=== PATIENT | female | born 1980 | race African-American/Black ===

== ENCOUNTER 2021-08-03 15:27 | Emergency (ER) | payer OTHER ==
[~2021-08-03] VITALS: Ht 167.6 cm; Wt 100.0 kg
[2021-08-03 15:29] VITALS: BP 143/85
[2021-08-03] MEDS ORDERED: PERM60CR4 TP ×2 (16:31)
[2021-08-07] MEDS ORDERED: PERM60CR4 TP ×3 (14:01→14:02)
== END 2021-08-03 16:48 | disposition home or self-care (01) ==
LOC: ER 16:35
DX: B86 Scabies (principal); Z98.890 Other specified postprocedural states
CPT/HCPCS: 99282

== ENCOUNTER 2021-08-11 15:45 | Emergency (ER) | payer MEDICAID, OTHER ==
[~2021-08-11] VITALS: Ht 165.1 cm; Wt 101.0 kg
[~2021-08-11 15:45] MED LIST: PERM60CR4 TP
[2021-08-11] MEDS ORDERED: IVER117L TP (16:38)
[2021-08-11 16:44] VITALS: BP 141/65
== END 2021-08-11 16:44 | disposition home or self-care (01) ==
LOC: ER 15:45
DX: R21 Rash and other nonspecific skin eruption (principal); M32.9 Systemic lupus erythematosus, unspecified; Z98.890 Other specified postprocedural states
CPT/HCPCS: 99283

== ENCOUNTER 2022-12-08 19:46 | Emergency (ER) | payer OTHER ==
[~2022-12-08] VITALS: Ht 170.2 cm; Wt 118.2 kg
[~2022-12-08 19:46] MED LIST changes: +APIX5TAB MT; +APIX5TAB PO; +FERR-63 PO; +HYDR-4001 PO; +METH-773 PO; +NICO-786 TD; +OXYC-662 MT; +PANT40TA51 PO; -PERM60CR4 TP; +POTA-202 PO; +RISP05 NG; +RISP1 PO; +SPIR25TA PO; +TOPUD MT; +TRAZ-251 PO
[2022-12-08 20:15] VITALS: O2SAT 99
[2022-12-08] MEDS: ASPIRIN 325MG EC TABLET PO NR ×2 (20:15→22:28)
[2022-12-08] MEDS ORDERED: ASPIRIN 325MG EC TABLET PO ONE (20:30)
[2022-12-08 21:03] LABS: BASOPHILS % 0.4 % (0.0-2.0); EOSINOPHILS % 3.3 % (0.0-5.0); HEMATOCRIT. 32.4 % (36.0-48.0); HEMOGLOBIN. 10.5 g/dL (12.0-16.0); LYMPHOCYTES % 37.6 % (20.0-50.0); MEAN CORPUSCULAR HEMOGLOBIN 24.2 pg (28.0-32.0); MEAN CORPUSCULAR HGB CONC 32.5 g/dL (31.0-37.0); MEAN CORPUSCULAR VOLUME 74.5 fL (81.0-99.0); MEAN PLATELET VOLUME 7.1 fl (7.4-10.4); MONOCYTES % 6.9 % (2.0-8.0); NEUTROPHILS % 51.8 % (40.0-76.0); PLATELET 365 x1000/uL (130-400); RED BLOOD CELL COUNT 4.35 mill/uL (4.2-5.4); RED CELL DISTRIBUTION WIDTH 30.3 % (11.6-14.6); WHITE BLOOD COUNT 6.8 x1000/uL (4.5-11.0)
[2022-12-08 21:04] LABS: DIFFERENTIAL COMMENT 1
[2022-12-08 21:05] LABS: ADD RBC MORPHOLOGY YES
[2022-12-08 21:12] LABS: CHLORIDE 107 mEq/L (98-107); INDEX HEMOLYSI 1 (1-3); INDEX ICTERIC 1 (1-4); INDEX LIPEMIC 1 (1-3); POTASSIUM 3.1 mEq/L (3.5-5.1); SODIUM 136 mEq/L (136-145)
[2022-12-08 21:19] LABS: HCG SCREEN NEGATIVE
[2022-12-08 21:21] LABS: ALANINE AMINOTRANSFERASE 14 IU/L (13-61); ALBUMIN 2.9 g/dL (3.4-5.0); ASPARTATE AMINOTRANSFERASE 12 IU/L (15-37); BILIRUBIN TOTAL 0.2 mg/dL (0.1-1.0); CALCIUM 8.4 mg/dL (8.5-10.1); CARBON DIOXIDE 28 mEq/L (21-32); CREATININE 0.6 mg/dL (0.6-1.3); GLUCOSE 96 mg/dL (70-105); PROTEIN TOTAL 8.1 g/dL (6.0-8.3); TROPONIN I HIGH SENSITIVITY 4 ng/L (<54); UREA NITROGEN BLOOD 8 mg/dL (7-21)
[2022-12-08 21:51] LABS: PLATELET ESTIMATE NORMAL
[2022-12-08 21:52] LABS: ANISOCYTOSIS 3+; HYPOCHROMASIA 1+; MICROCYTOSIS 2+; OVALOCYTES 1+
[2022-12-08 21:53] LABS: GIANT PLATELETS FEW
[2022-12-08] MEDS ORDERED: LORA10CA MT (22:17)
[2022-12-08] MEDS ORDERED: ALBU6.7H3 INH (22:17)
[2022-12-08] MEDS ORDERED: GUAI600T26 MT (22:17)
[2022-12-08] MEDS ORDERED: NEBU-248 MC (22:17)
[2022-12-08] MEDS ORDERED: ALBU05 NEB (22:17)
[2022-12-08 22:25] VITALS: BP 152/99; PULSE 84; RESP 16; TEMP 98.2
== END 2022-12-08 22:43 | disposition home or self-care (01) ==
LOC: ER 19:46
DX: R07.89 Other chest pain (principal); Z79.899 Other long term (current) drug therapy; Z76.0 Encounter for issue of repeat prescription; Z13.9 Encounter for screening, unspecified
CPT/HCPCS: 36415; 71045; 80053; 83880; 84484; 84703; 85025; 93005; 93971; 99285

== ENCOUNTER 2023-02-12 22:36 | Emergency (ER) | payer OTHER ==
[~2023-02-12] VITALS: Ht 170.2 cm; Wt 114.0 kg
[~2023-02-12 22:36] MED LIST changes: +ALBU05 NEB; +ALBU6.7H3 INH; +GUAI600T26 MT; +HYDR-4001 MT; +IBUP-2029 MT; +LORA10CA MT; +NEBU-248 MC; +P50 MT
[2023-02-12 22:43] VITALS: O2SAT 100
[2023-02-12 23:32] LABS: BASOPHILS % 0.4 % (0.0-2.0); DIFFERENTIAL COMMENT 0; HEMATOCRIT. 42.4 % (36.0-48.0); HEMOGLOBIN. 13.7 g/dL (12.0-16.0); LYMPHOCYTES % 18.9 % (20.0-50.0); MEAN CORPUSCULAR HEMOGLOBIN 25.8 pg (28.0-32.0); MEAN CORPUSCULAR HGB CONC 32.4 g/dL (31.0-37.0); MEAN CORPUSCULAR VOLUME 79.5 fL (81.0-99.0); MEAN PLATELET VOLUME 7.5 fl (7.4-10.4); MONOCYTES % 2.5 % (2.0-8.0); NEUTROPHILS % 78.2 % (40.0-76.0); PLATELET 381 x1000/uL (130-400); RED BLOOD CELL COUNT 5.33 mill/uL (4.2-5.4); RED CELL DISTRIBUTION WIDTH 15.7 % (11.6-14.6); WHITE BLOOD COUNT 3.8 x1000/uL (4.5-11.0)
[2023-02-12 23:41] LABS: CHLORIDE 105 mEq/L (98-107); INDEX HEMOLYSI 1 (1-3); INDEX ICTERIC 1 (1-4); INDEX LIPEMIC 1 (1-3); POTASSIUM 3.7 mEq/L (3.5-5.1); SODIUM 136 mEq/L (136-145)
[2023-02-12 23:49] LABS: ALANINE AMINOTRANSFERASE 15 IU/L (13-61); ALBUMIN 3.5 g/dL (3.4-5.0); ASPARTATE AMINOTRANSFERASE 13 IU/L (15-37); BILIRUBIN TOTAL 0.2 mg/dL (0.1-1.0); CALCIUM 8.9 mg/dL (8.5-10.1); CARBON DIOXIDE 26 mEq/L (21-32); CREATININE 0.6 mg/dL (0.6-1.3); GLUCOSE 126 mg/dL (70-105); NT PRO B-TYPE NATRIURETIC PEP 62 pg/mL (5-125); TROPONIN I HIGH SENSITIVITY 4 ng/L (<54); UREA NITROGEN BLOOD 8 mg/dL (7-21)
[2023-02-13] MEDS ORDERED: ASPIRIN 81MG TABLET PO ONE (00:30)
[2023-02-13 03:43] VITALS: BP 147/90; PULSE 89; RESP 20; TEMP 98.5
== END 2023-02-13 04:05 | disposition short-term general hospital (02) ==
LOC: ER 22:40
DX: R07.89 Other chest pain (principal); I20.0 Unstable angina; Z86.711 Personal history of pulmonary embolism; Z79.899 Other long term (current) drug therapy
CPT/HCPCS: 80053; 83880; 85025; 85379; 84484; 36415; 71045; 93005; 99285; Z7610

== ENCOUNTER 2023-02-27 06:44 | Emergency (ER) | payer MEDICAID, OTHER ==
[~2023-02-27 06:44] MED LIST changes: -APIX5TAB PO; -HYDR-4001 MT
[2023-02-27 07:00] VITALS: PULSE 88
== END 2023-02-27 08:58 | disposition left against medical advice (07) ==
LOC: ER 06:44
DX: Z53.21 Procedure and treatment not carried out due to patient leaving prior to being seen by health care provider (principal)

== ENCOUNTER 2023-02-27 09:03 | Emergency (ER) | payer MEDICAID, OTHER ==
[~2023-02-27] VITALS: Ht 172.7 cm; Wt 105.0 kg
[2023-02-27 09:27] VITALS: BP 142/110; TEMP 98.2
[2023-02-27 12:07] LABS: BASOPHILS % 1.1 % (0.0-2.0); EOSINOPHILS % 0.7 % (0.0-5.0); HEMATOCRIT. 35.4 % (36.0-48.0); HEMOGLOBIN. 11.5 g/dL (12.0-16.0); MEAN CORPUSCULAR HEMOGLOBIN 26.2 pg (28.0-32.0); MEAN CORPUSCULAR HGB CONC 32.5 g/dL (31.0-37.0); MEAN CORPUSCULAR VOLUME 80.6 fL (81.0-99.0); MEAN PLATELET VOLUME 7.1 fl (7.4-10.4); MONOCYTES % 5.6 % (2.0-8.0); NEUTROPHILS % 69.6 % (40.0-76.0); PLATELET 552 x1000/uL (130-400); RED BLOOD CELL COUNT 4.39 mill/uL (4.2-5.4); RED CELL DISTRIBUTION WIDTH 16.4 % (11.6-14.6); WHITE BLOOD COUNT 12.1 x1000/uL (4.5-11.0)
[2023-02-27 12:18] LABS: D-DIMER 0.29 mg/L FEU (<0.50); PROTHROMBIN TIME 10.6 sec (9.6-11.0)
[2023-02-27 14:18] VITALS: PULSE 85; RESP 16
[2023-02-27 15:40] LABS: ALANINE AMINOTRANSFERASE 17 IU/L (10-49); ASPARTATE AMINOTRANSFERASE 20 IU/L (<34); BILIRUBIN TOTAL 0.5 mg/dL (0.1-1.0); CALCIUM 9.4 mg/dL (8.7-10.4); CARBON DIOXIDE 23 mEq/L (21-32); CHLORIDE 104 mEq/L (98-107); CREATININE 0.7 mg/dL (0.6-1.0); GLUCOSE 101 mg/dL (70-105); POTASSIUM 3.8 mEq/L (3.5-5.1); PROTEIN TOTAL 7.2 g/dL (6.0-8.3); SODIUM 137 mEq/L (136-145); UREA NITROGEN BLOOD 17 mg/dL (9-23)
[2023-02-27 15:42] LABS: TROPONIN I HIGH SENSITIVITY < 4 ng/L (3.0-34)
== END 2023-02-27 15:51 | disposition left against medical advice (07) ==
LOC: ER 09:03 → CANBEDREQ 12:00 → ER 15:51
DX: R06.02 Shortness of breath (principal); Z86.59 Personal history of other mental and behavioral disorders
CPT/HCPCS: 36415; 71045; 80053; 83880; 84484; 85025; 85379; 93005; 99285

== ENCOUNTER 2023-02-27 19:37 | Emergency (ER) | payer OTHER ==
[~2023-02-27] VITALS: Ht 177.8 cm; Wt 100.0 kg
[2023-02-27 19:46] VITALS: BP 136/99; PULSE 104; RESP 20; TEMP 97.7; O2SAT 100
[2023-02-27 23:15] LABS: BASOPHILS % 0.7 % (0.0-2.0); HEMATOCRIT. 33.1 % (36.0-48.0); HEMOGLOBIN. 11.1 g/dL (12.0-16.0); LYMPHOCYTES % 31.7 % (20.0-50.0); MEAN CORPUSCULAR HGB CONC 33.5 g/dL (31.0-37.0); MEAN CORPUSCULAR VOLUME 80.7 fL (81.0-99.0); MONOCYTES % 7.3 % (2.0-8.0); NEUTROPHILS % 58.3 % (40.0-76.0); PLATELET 500 x1000/uL (130-400); WHITE BLOOD COUNT 9.2 x1000/uL (4.5-11.0)
[2023-02-27 23:26] LABS: PARTIAL THROMBOPLASTIN TIME 27.5 sec (23.4-31.0); PROTHROMBIN TIME 10.3 sec (9.6-11.0)
[2023-02-27 23:31] LABS: ALANINE AMINOTRANSFERASE 15 IU/L (10-49); ALBUMIN 3.8 g/dL (3.2-4.8); ASPARTATE AMINOTRANSFERASE 19 IU/L (<34); BILIRUBIN TOTAL 0.2 mg/dL (0.1-1.0); CALCIUM 8.9 mg/dL (8.7-10.4); CARBON DIOXIDE 26 mEq/L (21-32); CHLORIDE 104 mEq/L (98-107); CREATININE 0.6 mg/dL (0.6-1.0); GLUCOSE 132 mg/dL (70-105); POTASSIUM 3.4 mEq/L (3.5-5.1); PROTEIN TOTAL 6.8 g/dL (6.0-8.3); SODIUM 139 mEq/L (136-145); UREA NITROGEN BLOOD 16 mg/dL (9-23)
[2023-02-27 23:59] LABS: TROPONIN I HIGH SENSITIVITY < 4 ng/L (3.0-34)
== END 2023-02-28 05:30 | disposition home or self-care (01) ==
LOC: ER 19:37
DX: R06.02 Shortness of breath (principal); Z79.899 Other long term (current) drug therapy; Z98.890 Other specified postprocedural states
CPT/HCPCS: 36415; 71045; 80053; 84484; 85025; 93005; 99285

== ENCOUNTER 2023-10-12 20:46 | Emergency (ER) | payer OTHER ==
[~2023-10-12] VITALS: Ht 165.1 cm; Wt 114.0 kg
[~2023-10-12 20:46] MED LIST changes: +AMLO5TAB88 MT; +APIX5TAB PO; +BENZ100C86 MT; +ONDA4TAB50 MT
[2023-10-12 20:53] VITALS: BP 145/99; PULSE 116; RESP 16; O2SAT 99
[2023-10-12 21:43] LABS: HEMATOCRIT. 27.4 % (36.0-48.0); HEMOGLOBIN. 8.2 g/dL (12.0-16.0); MEAN CORPUSCULAR HEMOGLOBIN 18.4 pg (28.0-32.0); MEAN CORPUSCULAR HGB CONC 30.1 g/dL (31.0-37.0); MEAN PLATELET VOLUME 7.2 fl (7.4-10.4); PLATELET 413 x1000/uL (130-400); RED BLOOD CELL COUNT 4.49 mill/uL (4.2-5.4)
[2023-10-12 21:44] LABS: DIFFERENTIAL COMMENT 1
[2023-10-12 21:49] LABS: CHLORIDE 109 mEq/L (98-107); POTASSIUM 3.8 mEq/L (3.5-5.1); SODIUM 138 mEq/L (136-145)
[2023-10-12 21:50] LABS: CALCIUM 8.7 mg/dL (8.7-10.4); CARBON DIOXIDE 24 mEq/L (21-32)
[2023-10-12 21:52] LABS: HCG SCREEN NEGATIVE
[2023-10-12 21:55] LABS: CREATININE 0.6 mg/dL (0.6-1.0); GLUCOSE 96 mg/dL (70-105); UREA NITROGEN BLOOD 13 mg/dL (9-23)
[2023-10-12 21:58] LABS: ETHANOL BLOOD < 10 mg/dL (<10); PLATELET ESTIMATE INCREASED; TROPONIN I HIGH SENSITIVITY < 4 ng/L (3.0-34)
[2023-10-12 21:59] LABS: ANISOCYTOSIS 2+; HYPOCHROMASIA 3+; MICROCYTOSIS 3+
[2023-10-13] MEDS ORDERED: ACET-2708 MT (01:23)
[2023-10-13 01:55] VITALS: TEMP 98
[2023-10-13] MEDS: ACETAMINOPHEN 500MG TABLET PO ONE (01:55)
[2023-10-13] MEDS ORDERED: IOHEXOL-350 100 ML BOTTLE ONE (03:11)
== END 2023-10-13 10:06 | disposition left against medical advice (07) ==
LOC: ER 20:46
DX: M79.18 Myalgia, other site (principal); R53.1 Weakness; R42 Dizziness and giddiness; Z98.890 Other specified postprocedural states; Z79.899 Other long term (current) drug therapy
CPT/HCPCS: 80048; 80320; 84703; 85025; 85379; 84484; 36415; 71045; 71275; 93005; 99285; Z7610; Q9967; G0480

== ENCOUNTER 2023-12-26 20:07 | Inpatient (IN) | payer BC, MEDICAID, OTHER ==
[~2023-12-26] VITALS: Ht 170.2 cm; Wt 111.3 kg
[~2023-12-26 20:07] MED LIST changes: +ACET-2708 MT
[2023-12-26] MEDS ORDERED: MORPHINE SULFATE 4 MG/ML INJ (FOR IV/IM USE) IV STA (21:41)
[2023-12-26] MEDS: ASPIRIN 81MG TABLET PO ONE (22:14)
[2023-12-26] MEDS: NITROGLYCERIN 0.4MG TABLET SL SL PRN (22:26)
[2023-12-26] MEDS ORDERED: LORAZEPAM 2MG/ML INJ IM ONE (23:45)
[2023-12-27 01:00] LABS: *AMPHETAMINES SCREEN URINE PRESUMPTIVE POSITIVE (NEGATIVE); *BARBITURATES SCREEN URINE NEGATIVE (NEGATIVE); *BENZODIAZEPINES SCREEN URINE NEGATIVE (NEGATIVE); *COCAINE SCREEN URINE NEGATIVE (NEGATIVE); METHADONE URINE SCREEN NEGATIVE (NEGATIVE); OPIATES URINE SCREEN NEGATIVE (NEGATIVE)
[2023-12-27 01:01] LABS: CANNABINOID URINE SCREEN NEGATIVE (NEGATIVE); ECSTASY MDMA SCREEN URINE CONF.TEST INDICATED (NEGATIVE); PHENCYCLIDINE URINE SCREEN NEGATIVE (NEGATIVE)
[2023-12-27] MEDS: LORAZEPAM 2MG/ML INJ IM NR (01:10)
[2023-12-27 02:09] LABS: HEMATOCRIT. 27.8 % (36.0-48.0); HEMOGLOBIN. 8.4 g/dL (12.0-16.0); MEAN CORPUSCULAR HEMOGLOBIN 18.5 pg (28.0-32.0); MEAN CORPUSCULAR VOLUME 61.5 fL (81.0-99.0); MEAN PLATELET VOLUME 7.3 fl (7.4-10.4); PLATELET 464 x1000/uL (130-400); RED BLOOD CELL COUNT 4.53 mill/uL (4.2-5.4); RED CELL DISTRIBUTION WIDTH 20.3 % (11.6-14.6); WHITE BLOOD COUNT 6.3 x1000/uL (4.5-11.0)
[2023-12-27 02:10] LABS: DIFFERENTIAL COMMENT 1
[2023-12-27] MEDS: FUROSEMIDE 40MG/4ML VIAL IV ONE (02:16)
[2023-12-27 02:18] LABS: CHLORIDE 106 mEq/L (98-107); POTASSIUM 5.2 mEq/L (3.5-5.1); SODIUM 136 mEq/L (136-145)
[2023-12-27 02:19] LABS: CALCIUM 8.9 mg/dL (8.7-10.4); CARBON DIOXIDE 25 mEq/L (21-32)
[2023-12-27 02:24] LABS: CREATININE 0.6 mg/dL (0.6-1.0); GLUCOSE 106 mg/dL (70-105); UREA NITROGEN BLOOD 7 mg/dL (9-23)
[2023-12-27 03:42] LABS: ETHANOL BLOOD < 10 mg/dL (<10); TROPONIN I HIGH SENSITIVITY < 4 ng/L (3.0-34)
[2023-12-27 06:12] LABS: HYPOCHROMASIA 1+; PLATELET ESTIMATE INCREASED
[2023-12-27 06:13] LABS: MICROCYTOSIS 2+
[2023-12-27] MEDS ORDERED: ACETAMINOPHEN 325MG TABLET PO PRN ×2 (13:30)
[2023-12-27] MEDS ORDERED: IPRATROPIUM/ALBUTEROL 0.5-3(2.5)MG/3ML NEB HHN PRN (13:30)
[2023-12-27] MEDS ORDERED: ONDANSETRON HCL 4MG/2ML INJ IV PRN (13:30)
[2023-12-27] MEDS ORDERED: CLONIDINE 0.1MG TABLET PO PRN (13:30)
[2023-12-27] MEDS ORDERED: DOCUSATE SODIUM 100MG CAPSULE PO PRN (13:30)
[2023-12-27 13:57] LABS: CLARITY URINE CLEAR (CLEAR); COLOR URINE YELLOW (YELLOW); GLUCOSE URINE NEGATIVE (NEGATIVE); KETONES URINE NEGATIVE (NEGATIVE); LEUKOCYTE ESTERASE URINE NEGATIVE (NEGATIVE); NITRITE URINE NEGATIVE (NEGATIVE); OCCULT BLOOD URINE 1+ (NEGATIVE); PROTEIN URINE NEGATIVE (NEGATIVE); SPECIFIC GRAVITY URINE 1.011 (1.005-1.030); UROBILINOGEN URINE 0.2 E.U./dL (0.2-1.0)
[2023-12-27 14:03] LABS: UCG SCREEN NEGATIVE
[2023-12-27 14:28] LABS: BACTERIA URINE 3+; RBC URINE 0-2 /hpf (0-2); SQUAMOUS EPITHELIAL CELL URINE 2+ /lpf (RARE/1+); YEAST URINE NONE SEEN
[2023-12-27] MEDS: NITROGLYCERIN OINT 1GM/INCH UDPKT TD SCH (16:05)
[2023-12-27] MEDS: SODIUM POLYSTYRENE SULFONATE 15 G/60 ML BOT PO NR (16:15)
[2023-12-27 17:07] LABS: CREATINE KINASE 81 IU/L (34-145)
[2023-12-27 17:08] LABS: CREATINE KINASE MB FRACTION 0.9 ng/mL (0.5-3.6)
[2023-12-27 17:10] LABS: TROPONIN I HIGH SENSITIVITY < 4 ng/L (3.0-34)
[2023-12-27 17:13] LABS: T4 FREE 1.01 ng/dL (0.89-1.76); THYROID STIMULATING HORMONE 2.23 uIU/mL (0.55-4.78)
[2023-12-27] MEDS: ENOXAPARIN 30MG/0.3ML SYR SUBCUT SCH (21:15)
[2023-12-27 23:14] VITALS: BP 129/80; PULSE 97; RESP 18; TEMP 36.14
[2023-12-28] VITALS: BP 120/61; PULSE 67; RESP 19; TEMP 36.6696; O2SAT 98
[2023-12-28 00:06] LABS: CREATINE KINASE MB FRACTION 0.8 ng/mL (0.5-3.6)
[2023-12-28 00:07] LABS: CREATINE KINASE 84 IU/L (34-145)
[2023-12-28 00:09] LABS: TROPONIN I HIGH SENSITIVITY < 4 ng/L (3.0-34)
[2023-12-28 04:00] VITALS: BP 130/76; PULSE 85; RESP 19; TEMP 36.22512; O2SAT 100
[2023-12-28] MEDS: LORAZEPAM 2MG/ML INJ IV NR (06:14)
[2023-12-28 08:00] VITALS: BP 101/56; PULSE 101; RESP 20; TEMP 36.89184; O2SAT 92
[2023-12-28] MEDS: PANTOPRAZOLE SODIUM 40 MG/VIAL IV SCH (08:32)
[2023-12-28] MEDS: ASPIRIN 81MG TABLET PO SCH (08:33)
[2023-12-28 08:54] LABS: INR 0.9; PROTHROMBIN TIME 10.2 sec (9.6-11.0)
[2023-12-28 09:03] LABS: CALCIUM 9.8 mg/dL (8.7-10.4); CARBON DIOXIDE 28 mEq/L (21-32); CHLORIDE 105 mEq/L (98-107); POTASSIUM 3.9 mEq/L (3.5-5.1); SODIUM 138 mEq/L (136-145)
[2023-12-28 09:06] LABS: BASOPHILS % 0.4 % (0.0-2.0); EOSINOPHILS % 0.1 % (0.0-5.0); HEMATOCRIT. 27.9 % (36.0-48.0); HEMOGLOBIN. 8.3 g/dL (12.0-16.0); LYMPHOCYTES % 19.6 % (20.0-50.0); MEAN CORPUSCULAR HEMOGLOBIN 18.5 pg (28.0-32.0); MEAN CORPUSCULAR HGB CONC 29.8 g/dL (31.0-37.0); MEAN CORPUSCULAR VOLUME 62.1 fL (81.0-99.0); MEAN PLATELET VOLUME 7.3 fl (7.4-10.4); MONOCYTES % 3.2 % (2.0-8.0); NEUTROPHILS % 76.7 % (40.0-76.0); PLATELET 541 x1000/uL (130-400); WHITE BLOOD COUNT 4.6 x1000/uL (4.5-11.0)
[2023-12-28 09:08] LABS: ALBUMIN 4.3 g/dL (3.2-4.8); BILIRUBIN TOTAL 0.2 mg/dL (0.1-1.0); CREATININE 0.7 mg/dL (0.6-1.0); GLUCOSE 102 mg/dL (70-105); IRON 19 ug/dL (50-170)
[2023-12-28 09:09] LABS: LDL CHOLESTEROL 94 mg/dL (5-100); TRIGLYCERIDE 64 mg/dL (0-150); UREA NITROGEN BLOOD 13 mg/dL (9-23)
[2023-12-28 09:10] LABS: ALANINE AMINOTRANSFERASE 12 IU/L (10-49); ASPARTATE AMINOTRANSFERASE 19 IU/L (<34); CHOLESTEROL 174 mg/dL (<200); HDL CHOLESTEROL 67 mg/dL (>65); PHOSPHORUS 3.8 mg/dL (2.5-4.9)
[2023-12-28 09:11] LABS: PROTEIN TOTAL 7.6 g/dL (6.0-8.3); TOTAL IRON BINDING CAPACITY 441 ug/dl (250-425)
[2023-12-28 09:12] LABS: DIFFERENTIAL COMMENT 1
[2023-12-28 09:14] LABS: FERRITIN 6 ng/mL (10-291); FOLIC ACID (FOLATE) SERUM 11.76 ng/mL (>5.38); VITAMIN B12 SERUM 284 pg/mL (211-911)
[2023-12-28 09:22] LABS: BILIRUBIN DIRECT < 0.1 mg/dL (<=3.0)
[2023-12-28 12:00] VITALS: BP 131/74; PULSE 121; RESP 18; TEMP 36.33624; O2SAT 96
[2023-12-28] MEDS: LEVOFLOXACIN 500MG TABLET PO SCH (12:30)
[2023-12-28] MEDS: FERROUS SULFATE 325MG TABLET PO SCH (12:30)
[2023-12-28 16:00] VITALS: BP 127/81; RESP 18; TEMP 36.33624; O2SAT 96
[2023-12-28] MEDS ORDERED: IOHEXOL-350 100 ML BOTTLE ONE (16:03)
[2023-12-28 20:47] VITALS: BP 114/69; PULSE 94; RESP 16; TEMP 36.78072; O2SAT 98
[2023-12-29] VITALS: BP 123/63; PULSE 94; RESP 19; TEMP 36.6696; O2SAT 96
[2023-12-29 04:00] VITALS: BP 130/80; PULSE 76; RESP 20; TEMP 36.55848; O2SAT 100
[2023-12-29 08:00] VITALS: BP 133/82; PULSE 90; RESP 22; TEMP 36.89184; O2SAT 99
[2023-12-29 16:00] VITALS: BP 121/66; PULSE 92; RESP 20; TEMP 36.89184; O2SAT 97
[2023-12-29 20:00] VITALS: BP 143/93; PULSE 121; RESP 18; TEMP 35.89176; O2SAT 19
[2023-12-30] VITALS: BP 135/84; PULSE 78; RESP 16; TEMP 36.16956; O2SAT 98
[2023-12-30 04:00] VITALS: BP 127/73; PULSE 89; RESP 19; TEMP 36.6696; O2SAT 100
[2023-12-30 07:27] VITALS: BP 118/70; PULSE 84; RESP 20; TEMP 36.9474; O2SAT 100
[2023-12-30 11:34] VITALS: BP 143/87; PULSE 94; RESP 18; TEMP 36.89184; O2SAT 99
[2023-12-30] MEDS: LEVOFLOXACIN 250MG TABLET PO SCH (11:51)
[2023-12-30 15:48] VITALS: BP 136/84; PULSE 100; RESP 18; TEMP 36.78072; O2SAT 98
[2023-12-30 20:00] VITALS: BP 117/60; PULSE 89; RESP 19; TEMP 36.83628; O2SAT 100
[2023-12-30] MEDS ORDERED: NALOXONE HCL 0.4MG/ML VIAL IV PRN (22:00)
[2023-12-30] MEDS: HYDROCODONE/ACETAMINOPHEN 10/325MG TABLET PO PRN (22:15)
[2023-12-31] VITALS: BP 121/73; PULSE 94; RESP 19; TEMP 36.3918; O2SAT 100
[2023-12-31 04:00] VITALS: BP 110/71; PULSE 83; RESP 18; TEMP 36.33624; O2SAT 100
[2023-12-31 08:00] VITALS: BP 141/81; PULSE 81; RESP 18; TEMP 36.05844; O2SAT 99
[2023-12-31] MEDS ORDERED: CIPR-263 MT (08:09)
[2023-12-31 10:37] VITALS: BP 141/81; PULSE 81; TEMP 96.9; O2SAT 99
== END 2023-12-31 15:24 | disposition home or self-care (01) | DRG 812 ==
LOC: ER 20:21 → 5WST 12-27 01:48 → 7WST 12-27 18:33
PROVIDERS: ADMIT Internal Medicine; ATTEND Internal Medicine
DX: T43.621A Poisoning by amphetamines, accidental (unintentional), initial encounter (principal); M32.9 Systemic lupus erythematosus, unspecified; Z86.74 Personal history of sudden cardiac arrest; D64.9 Anemia, unspecified; E87.5 Hyperkalemia; F10.10 Alcohol abuse, uncomplicated; F15.10 Other stimulant abuse, uncomplicated; F17.210 Nicotine dependence, cigarettes, uncomplicated; J44.9 Chronic obstructive pulmonary disease, unspecified; I10 Essential (primary) hypertension; Y90.9 Presence of alcohol in blood, level not specified; Z86.711 Personal history of pulmonary embolism; Z59.00 Homelessness unspecified; Z98.891 History of uterine scar from previous surgery; Z79.01 Long term (current) use of anticoagulants; Z79.899 Other long term (current) drug therapy; Y92.89 Other specified places as the place of occurrence of the external cause
CPT/HCPCS: 36415; 71045; 71275; 80048; 80061; 80076; 80305; 80320; 81003; 81025; 82550; 82553; 82607; 82728; 82746; 83036; 83540; 83550; 83735; 83880; 84100; 84439; 84443; 84480; 84484; 85025; 85379; 93005; 99285; C1893; J1650; J1940; J2060; J2270; J2470; Q9967; G0480